=== PATIENT | female | born 1950 | race Caucasian/White ===

== ENCOUNTER → 2017-05-23 | Outpatient (CLI) | payer MEDICARE, BC ==
--- NOTE | 2017-05-23 09:22 | RAD ---
Right RIBS with chest, 3 views, 05/23/2017: History: Pain, cough The bony structures are demineralized. No rib fracture is identified. There is moderate hypertrophic spurring in the spine. There is no evidence of underlying pneumothorax, hemothorax or pulmonary infiltrate. The heart size is normal. There is calcific plaquing and tortuosity of the thoracic aorta. IMPRESSION: 1. Demineralization. 2. No acute right rib abnormality is detected.
== END | disposition home or self-care (01) ==
LOC: DXRADRC 08:15
PROVIDERS: ATTEND Physician Assistant Medical
DX: R07.81 Pleurodynia (principal); R05 Cough; M81.0 Age-related osteoporosis without current pathological fracture
CPT/HCPCS: 71101

== ENCOUNTER → 2018-06-09 | Outpatient (CLI) | payer MEDICARE, BC ==
--- NOTE | 2018-06-09 12:02 | RAD ---
Ankle-brachial indices 06/09/2018 INDICATION: Leg pain. High risk for peripheral vascular disease secondary to diabetes, hypertension, and smoking history Discussion: Right brachial pressure: 132 mmHg Left brachial pressure: 146 mmHg Right ankle pressure: 147 mmHg Left ankle pressure: 153 mmHg Right ankle brachial index:1.0 Left ankle-brachial index: 1.0 IMPRESSION: Normal ankle-brachial indices Electronically signed by: Matthew Vigil MD (06/09/2018 11:59 AM) [id number]
== END | disposition home or self-care (01) ==
LOC: US 09:40
PROVIDERS: ATTEND Physician Assistant Medical
DX: M79.604 Pain in right leg (principal); M79.605 Pain in left leg; I10 Essential (primary) hypertension; E11.9 Type 2 diabetes mellitus without complications; Z87.891 Personal history of nicotine dependence
CPT/HCPCS: 93922

== ENCOUNTER → 2019-02-22 | Outpatient (CLI) | payer MEDICARE, BC ==
--- NOTE | 2019-02-22 12:14 | RAD ---
CHEST PA LATERAL History: Dyspnea on exertion, smoker for 45 years Comparison: May 28, 2016 Findings: 2 views of the chest are submitted. There is no infiltrate, pneumothorax, or effusion. Pericardial cardiac silhouette is within normal limits in size. There is again tortuous thoracic aorta, atherosclerotic calcification near arch. There is multilevel thoracic spondylosis. There is small somewhat round focus of opacity right suprahilar region Impression: 1. There is a small round opacity in the right suprahilar region which may be a vessel although nodule not excluded by radiograph for which CT evaluation should be considered especially given history. 2. There is no significant infiltrate. Electronically signed by: Chris Medrano MD (02/22/2019 12:11 PM) [id number]
== END | disposition home or self-care (01) ==
LOC: PMG 11:40
PROVIDERS: ATTEND Family Medicine
DX: I70.0 Atherosclerosis of aorta (principal); R91.8 Other nonspecific abnormal finding of lung field; M47.814 Spondylosis without myelopathy or radiculopathy, thoracic region; F17.200 Nicotine dependence, unspecified, uncomplicated
CPT/HCPCS: 71046

== ENCOUNTER → 2019-03-05 | Outpatient (CLI) | payer MEDICARE, BC ==
--- NOTE | 2019-03-05 11:01 | RAD ---
EXAM: CT Chest without IV contrast CLINICAL HISTORY: Cough, lung nodule follow-up, dyspnea, positive tobacco history COMPARISON: Chest x-ray 02/22/2019 TECHNIQUE: CT of the chest without intravenous contrast. Axial, coronal and sagittal reformatted images were generated. ---PQRS compliance statement - One or more of the following individualized dose reduction techniques were utilized for this study: 1. Automated exposure control 2. Adjustment of the mA and/or kV according to patient size 3. Use of iterative reconstruction technique--- FINDINGS: Lack of intravenous contrast limits evaluation of solid organs, vasculature, and lymph nodes. Chest: Heart is not enlarged. Coronary artery calcifications and aortic root calcifications are seen. No pleural effusion or pneumothorax. Several prominent to borderline enlarged mediastinal lymph nodes are seen. For example a precarinal lymph node measures 1.7 x 1.3 cm. In addition there is enlarged axillary lymphadenopathy. For example a left axillary lymph node (series 2 image 24) measures 2.7 x 1.2 cm and an enlarged right axillary lymph node measures (3.2 x 1.5 cm). Of note, evaluation for hilar lymphadenopathy is limited on this noncontrast examination. Subpleural linear reticular opacities bilateral lower lobes likely scarring/atelectasis. No suspicious lung nodule or mass is seen. No definite CT correlate to the right suprahilar lung nodule, likely may represent a prominent vessel on end. A 9 mm nodular density is seen in the inferior, lateral right breast. Visualized Upper abdomen: Cholecystectomy clips are seen. Hepatic hypoattenuation may be seen with hepatic steatosis. Calcified granuloma are seen within the spleen. A gastrohepatic ligament lymph node measures 1.9 x 1.3 cm. Bones: Multilevel degenerative changes of the spine are seen. IMPRESSION: 1. No discrete CT correlate to the abnormality in the right suprahilar region on prior chest radiograph. Findings may be a result of summation artifact. 2. Enlarged axillary, mediastinal/hilar and gastrohepatic ligament lymph nodes. Although they may be reactive, given the diffuse lymph node enlargement, lymphoma/leukemia or other lymphomatous/myeloid/metastatic process are suspected. 3. A 9 mm nodular density is seen in the inferior, lateral right breast. This should be correlated with recent mammogram if available otherwise diagnostic mammography and ultrasound should be performed. Electronically signed by: Jesus Nieto MD (03/05/2019 10:58 AM) [facility]
== END | disposition home or self-care (01) ==
LOC: CT 09:39
PROVIDERS: ATTEND Family Medicine
DX: J98.4 Other disorders of lung (principal); I25.10 Atherosclerotic heart disease of native coronary artery without angina pectoris; I70.0 Atherosclerosis of aorta; R59.0 Localized enlarged lymph nodes; D73.89 Other diseases of spleen; Z90.49 Acquired absence of other specified parts of digestive tract
CPT/HCPCS: 71250

== ENCOUNTER → 2019-03-23 | Outpatient (CLI) | payer MEDICARE, BC ==
--- NOTE | 2019-03-23 15:31 | RAD ---
Examination: MAMMO MIGUEL DIAG BILAT, BREAST RIGHT History: Right breast mass on chest CT 03/05/2019 Comparison/Correlation: 03/05/[address] without contrast EXAMINATION: MAMMO MIGUEL DIAG BILAT, BREAST RIGHT FINDINGS: Full-field digital mammography was performed bilaterally. MLO and CC projections bilaterally were provided. CAD was utilized. There are scattered areas of fibroglandular density. Benign appearing axillary lymph node(s) are present. There are no suspicious calcification clusters. No masses or new distortion. Limited ultrasound imaging of the right outer breast was performed. At the 9:00 region a centimeter from nipple. This structure which has the appearance of a lymph node is identified at this site measuring 1.2 cm x 0.6 cm x 0.8 cm. Fatty hilum is normal in appearance. Contour is unremarkable. Cortical thickness of up to 0.3 cm noted. At the 9:00 region, 9 cm from nipple, there is a 0.7 cm x 0.7 cm x 0.4 cm structure with the appearance of the lymph node identified. IMPRESSION: BI-RADS Category: 3: Probably Benign. Six-month follow-up right breast ultrasound examination is recommended to assess stability of findings which appears represent lymph nodes. Patient information is entered into reminder system with a target due date for the next screening mammogram. Mammography is the most sensitive method for finding small breast cancers, but it does not detect them all and is not a substitute for careful clinical examination. A negative mammogram does not negate a clinically suspicious finding and should not result in delay in biopsying a clinically suspicious abnormality. "Our facility is accredited by the [employer] Mammography Program." Electronically signed by: German Parker MD (03/23/2019 3:28 PM) [facility]
== END | disposition home or self-care (01) ==
LOC: MAMMO 13:46
PROVIDERS: ATTEND Family Medicine
DX: N63.11 Unspecified lump in the right breast, upper outer quadrant (principal)
CPT/HCPCS: 76641; 77066; G0279; 77062

== ENCOUNTER → 2019-07-05 | Outpatient (CLI) | payer MEDICARE, BC ==
--- NOTE | 2019-07-05 15:52 | RAD ---
CHEST PA LATERAL History: Cough, smoker Comparison: 03/05/2019 CT chest without contrast, 02/22/2019 PA and lateral chest x-ray exam . Findings: Frontal and lateral views of chest were obtained. The cardiomediastinal silhouette is normal. Pulmonary vasculature is normal. The lungs are clear. Pulmonary hyperinflation noted. No pleural effusion or pneumothorax is seen. There is no acute bone abnormality. IMPRESSION: No acute cardiopulmonary process. COPD. Electronically signed by: German Parker MD (07/05/2019 3:49 PM) [facility]
== END | disposition home or self-care (01) ==
LOC: DXRAD 10:26
PROVIDERS: ATTEND Physician Assistant Medical
DX: J44.9 Chronic obstructive pulmonary disease, unspecified (principal); F17.200 Nicotine dependence, unspecified, uncomplicated
CPT/HCPCS: 71046

== ENCOUNTER → 2020-04-18 | Outpatient (CLI) | payer MEDICARE, BC ==
--- NOTE | 2020-04-18 10:50 | RAD ---
EXAM: CT CHEST WITHOUT CONTRAST HISTORY: Cough, follow-up lung nodule COMPARISON: Pulmonary nodule, cough TECHNIQUE: Helical CT of the chest performed without contrast. Coronal and sagittal reformats were obtained. One or more of the following individualized dose reduction techniques were utilized for this examination: 1. Automated exposure control 2. Adjustment of the mA and/or kV according to patient size 3. Use of iterative reconstruction technique. FINDINGS: Thyroid gland and thoracic inlet: Thyroid gland is normal. There multiple small supraclavicular lymph nodes on the right.. Heart and great vessels: The heart is normal in size. No pericardial effusion. Thoracic aorta is normal in caliber with mild calcified atherosclerosis. Mediastinum and reggie: Multiple small mediastinal lymph nodes are unchanged. For example, a 6 mm short axis prevascular lymph node and a 10 mm short axis precarinal lymph node. Lungs and pleura: There is a calcified granuloma in the right lower lobe. Unchanged 3 mm juxta fissural nodule in the right upper lobe (image 159, series 5). Decreased, mild airway wall thickening. Secretions in the right lower lobe airways on prior CT have resolved. There are mildly increased confluent linear opacities in the posterior medial right lower lobe. No pleural effusion. Chest wall and axillae: There are multiple bilateral enlarged axillary lymph nodes measuring up to 1.2 cm short axis, unchanged. There are several nodules in the outer right breast measuring up to 9 mm, possibly lymph nodes, also unchanged. Upper abdomen: Post cholecystectomy. The spleen is mildly enlarged measuring 14 cm in AP diameter, increased from prior exam. Mildly enlarged left Lymph nodes measuring up to 1.2 cm and gastrohepatic ligament lymph nodes measuring up to 1.2 cm are unchanged. No acute osseous abnormality. Bones: No acute osseous abnormality. IMPRESSION: 1. Unchanged 3 mm juxta fissural nodule in the right upper lobe, stable for over 12 months. No further follow-up indicated. 2. Increased mild confluent linear opacities in the posterior medial right lower lobe, which may be sequela of aspiration given secretions in the airways in this region on prior exam. Airway wall thickening has improved. 3. Unchanged mediastinal, hilar, axillary, and mesenteric lymphadenopathy. 4. Unchanged 9 mm nodule in the upper outer right breast. Electronically signed by: Anju Vital MD (04/18/2020 10:47 AM) [id number]
== END | disposition home or self-care (01) ==
LOC: CT 07:40
PROVIDERS: ATTEND Internal Medicine Pulmonary Disease
DX: R91.8 Other nonspecific abnormal finding of lung field (principal); K75.3 Granulomatous hepatitis, not elsewhere classified; R16.1 Splenomegaly, not elsewhere classified; Z90.49 Acquired absence of other specified parts of digestive tract
CPT/HCPCS: 71250

== ENCOUNTER → 2021-04-27 | Outpatient (CLI) | payer MEDICARE, BC ==
--- NOTE | 2021-04-27 10:35 | RAD ---
CT THORAX WO History: Bronchitis. Follow-up nodular infiltrate. Technique: Noncontrast CT of the chest was performed. Coronal and sagittal reconstructions were perfo rmed. Exposure: One or more of the following individualized dose reduction techniques were utilized for thi s examination: 1. Automated exposure control 2. Adjustment of the mA and/or kV according to patient size 3. Use of iterative reconstruction technique. Comparison: April 18, 2020 Findings: Chest: Numerous enlarged axillary, mediastinal and hilar lymph nodes. Largest right axillary lymph no de measures 3.0 x 1.5 cm. Largest left axillary lymph node measures 2.9 x 1.4 cm. Subcarinal lymph no de measures 1.9 x 1.4 cm per over lymph nodes are similar compared to prior. Unchanged nodule within the right breast measures 1 cm. Calcified pulmonary nodule, likely prior gran ulomatous disease. Minimal secretions within the right lower lobe bronchi. Decreased right lower lobe linear nodular opacity. Small right posterior [place] fat-containing her jaciel. Left upper lobe 4 mm pulmonary nodule (series 2 image 91), slightly increased compared to prior. 3 mm nodule just inferior to this region (image 97), unchanged. Right middle lobe 4 mm fissure-based nodu le (image 165), unchanged. Small 3 mm nodular opacities along the right upper lobe posterior bronchus (image 125 through 120). Upper abdomen: Numerous enlarged upper abdominal lymph nodes, similar compared to prior. Bones: No pathologic osseous lesions. Impression: 1. Decreased right lower lobe bandlike nodular opacity, most likely atelectasis. 2. New small nodular opacities adjacent to the right upper lobe posterior bronchus, may represent in flammatory or infectious process. Recommend 6 month follow-up CT. 3. Slightly increased left upper lobe pulmonary nodule. Recommend attention on follow-up CT. 4. Unchanged lymphadenopathy within the chest and upper abdomen. Electronically signed by: Jose Parish DO (04/27/2021 10:33 AM) [facility]
== END ==
LOC: CT 09:49
PROVIDERS: ATTEND Internal Medicine Pulmonary Disease
DX: R91.8 Other nonspecific abnormal finding of lung field (principal); R59.1 Generalized enlarged lymph nodes
CPT/HCPCS: 71250

== ENCOUNTER → 2021-10-30 | Outpatient (CLI) | payer MEDICARE, BC ==
--- NOTE | 2021-10-30 13:26 | RAD ---
EXAMINATION: CT Chest Without IV contrast. INDICATION:71 years, Female, follow-up pulmonary nodule. COMPARISON: 04/27/2021. TECHNIQUE: Spiral CT was obtained from the jugular notch through the posterior costophrenic recess. S agittal and coronal reformats were obtained. Exposure: One or more of the following individualized dose reduction techniques were utilized for thi s examination: 1. Automated exposure control 2. Adjustment of the mA and/or kV according to patient size 3. Use of iterative reconstruction technique. FINDINGS: LUNGS/PLEURA: Central airways are patent. New consolidative opacity with endobronchial debris in the medial right lower lobe. No pleural effusion or pneumothorax. * Stable to minimally increasing in size of fissure based left upper lobe pulmonary nodule (series 5 image 99), measures 5 mm previously 4 mm. * Stable 4 mm solid pulmonary nodule inferior to the aforementioned nodule (series 5 image 103). * Stable 3 mm fissure based nodule in the right middle lobe (series 5 image 165). * Calcified granuloma in the right lower lobe. MEDIASTINUM: Multiple prominent to mildly enlarged mediastinal lymph nodes, the largest measures 1.1 cm in short axis. The thoracic aorta and pulmonary arteries are normal in caliber. The heart is neli l in size. No pericardial effusion. Moderate calcified coronary atherosclerosis. The visualized thyro id and the esophagus are unremarkable. AXILLA/SOFT TISSUE: Similar multiple prominent to mildly enlarged bilateral supraclavicular and axill cathryn lymph nodes, the largest in the right axillary region measures 1.5 cm in short axis. Prominent le ft internal mammary lymph node, unchanged. Unchanged 1.0 cm soft tissue nodule within the right breas t. UPPER ABDOMEN: Enlarged left and caudate lobes with surface nodularity. Mild splenomegaly. Calcified granulomas in the spleen. Cholecystectomy. Nodular thickening of the left adrenal gland without discr ete nodule. Redemonstrated multiple prominent to mildly enlarged upper abdominal and retroperitoneal lymph nodes, the largest measures 1.8 cm in short axis. BONES: No evidence of acute fractures or aggressive osseous lesions. Multilevel degenerative changes in the spine. IMPRESSION: 1. New consolidative opacity with endobronchial debris in the medial right lower lobe, differential includes aspiration versus pneumonia. 2. Stable to minimally increasing in size of fissure based left upper lobe pulmonary nodule measurin g 5 mm, previously 4 mm. 6 months follow-up with CT chest is recommended. 3. Unchanged lymphadenopathy within the chest and upper abdomen. 4. Morphology of the liver may reflect chronic disease. Clinical correlation is advised. Electronically signed by: Jeff Smith MD (10/30/2021 1:24 PM) [facility]
== END ==
LOC: CT 09:54
PROVIDERS: ATTEND Internal Medicine Pulmonary Disease
DX: R91.8 Other nonspecific abnormal finding of lung field (principal); J84.10 Pulmonary fibrosis, unspecified; R16.1 Splenomegaly, not elsewhere classified; R59.0 Localized enlarged lymph nodes; I25.10 Atherosclerotic heart disease of native coronary artery without angina pectoris
CPT/HCPCS: 71250